=== PATIENT | male | born 1980 | race Caucasian/White ===

== ENCOUNTER 2022-02-25 19:38 | Emergency (ER) | payer SELFPAY ==
[2022-02-25 19:50] VITALS: BP 130/77; PULSE 68; RESP 19; TEMP 97.8; BMI 25.8
[2022-02-25] MEDS ORDERED: FLUORESCEIN NA 1 EA STRIP OS ONE (21:02)
[2022-02-25] MEDS ORDERED: TETRACAINE 0.5% HCL 0.6ML DROPPER.BOTTLE OS ONE (21:02)
[2022-02-25] MEDS ORDERED: FLUORESCEIN NA 1 EA STRIP ONE (21:03)
[2022-02-25] MEDS ORDERED: TETRACAINE 0.5% OPHTH SOLN 2 ML BOTTLE ONE (21:03)
[2022-02-25] MEDS ORDERED: BACITRACIN 15 GM TUBE TOPICAL OINTMENT ONE (21:27)
[2022-02-25] MEDS ORDERED: IBUPROFEN 600 MG TABLET (FP) PO ONE ×2 (22:56→22:57)
[2022-02-25] MEDS ORDERED: ACETAMINOPHEN 500 MG TABLET (FP) PO ONE (22:56)
[2022-02-25] MEDS ORDERED: ACETAMINOPHEN 500 MG TABLET (FP) ONE (22:57)
== END 2022-02-25 22:59 | disposition home or self-care (01) ==
LOC: JERFT 19:38
DX: S05.01XA Injury of conjunctiva and corneal abrasion without foreign body, right eye, initial encounter (principal); Y99.8 Other external cause status
CPT/HCPCS: 70480-TC; 99284-25